=== PATIENT | male | born 1960 | race Caucasian/White ===

== ENCOUNTER 2016-06-08 12:34 | Day surgery (SDC) | payer MEDICARE ==
[~2016-06-08] VITALS: Ht 185.4 cm; Wt 106.3 kg
[2016-06-08 13:03] VITALS: BP 133/85
[2016-06-08 13:16] LABS: HEMATOCRIT 47.2 % (38.0-50.0); MCH 32.5 PG (29.0-34.0); MCHC 34.5 G/DL (30.0-36.0); MEAN PLAT.VOLUME 10.9 uM^3 (9.0-12.4); PLATELET COUNT 274 K/uL (156-360); RBC DIS.WIDTH-CV 12.7 % (11.8-14.6); RBC DIS.WIDTH-SD 43.9 % (39-53); RED BLOOD COUNT 5.02 M/uL (4.00-5.50); WHITE BLOOD COUNT 9.7 K/uL (4.1-10.2)
[2016-06-08] MEDS ORDERED: BENICAR40 MG PO (14:12)
[2016-06-08 14:44] LABS: ALKALINE PHOSPHATASE 52 IU/L (3-129); ANION GAP 9 MEQ/L (2-14); CHLORIDE 101 MEQ/L (99-109); GFR ESTIMATE (CALCULATED) > 59 mL/min/; GLUCOSE 92 mg/dL (70-99); POTASSIUM 4.9 MEQ/L (3.7-5.4); SAMPLE HEMOLYSIS CHECK 3; SAMPLE ICTERIC CHECK 0; SAMPLE LIPEMIA CHECK 2; SODIUM 136 MEQ/L (136-147); TOTAL BILIRUBIN 0.4 MG/DL (0.0-1.0); UREA NITROGEN (BUN) 15 mg/dL (9-23)
[2016-06-08 15:15] VITALS: BP 124/82
== END 2016-06-08 19:45 | disposition home or self-care (01) ==
LOC: SDC 12:34 → 2EASTP 12:43
PROVIDERS: Ophthalmology
PROC: 08J1XZZ Inspection of Left Eye, External Approach (ICD-10-PCS; principal; 2016-06-08)
DX: H33.22 Serous retinal detachment, left eye (principal); Z53.09 Procedure and treatment not carried out because of other contraindication
CPT/HCPCS: 80053; 85027; 93005; G0378